=== PATIENT | male | born 1970 | race African-American/Black ===

== ENCOUNTER 2024-11-16 16:19 | Inpatient (IN) | payer MEDICARE ==
[~2024-11-16] VITALS: Ht 177.8 cm; Wt 147.0 kg
[2024-11-16] MEDS: BLOOD SUGAR DIAGNOSTIC STRIP TEST SCH (06:45)
[2024-11-16 18:02] LABS: BASOPHILS % 0.5 % (0.0-2.0); EOSINOPHILS % 0.2 % (0.0-5.0); HEMATOCRIT. 36.9 % (42.0-52.0); HEMOGLOBIN. 11.8 g/dL (14.0-18.0); LYMPHOCYTES % 10.1 % (20.0-50.0); MEAN CORPUSCULAR HEMOGLOBIN 26.8 pg (28.0-32.0); MEAN CORPUSCULAR HGB CONC 32.1 g/dL (31.0-37.0); MEAN CORPUSCULAR VOLUME 83.4 fL (80.0-94.0); MEAN PLATELET VOLUME 8.1 fl (7.4-10.4); MONOCYTES % 12.6 % (2.0-8.0); NEUTROPHILS % 76.6 % (40.0-76.0); PLATELET 497 x1000/uL (130-400); RED BLOOD CELL COUNT 4.42 mill/uL (4.7-6.1); RED CELL DISTRIBUTION WIDTH 15.7 % (11.6-14.6); WHITE BLOOD COUNT 12.2 x1000/uL (4.5-11.0)
[2024-11-16 18:07] LABS: POTASSIUM 4.7 mEq/L (3.5-5.1)
[2024-11-16 18:09] LABS: CALCIUM 9.5 mg/dL (8.7-10.4)
[2024-11-16 18:10] LABS: INR 1.2; PROTHROMBIN TIME 12.7 sec (9.6-11.0)
[2024-11-16 18:13] LABS: CREATININE 3.2 mg/dL (0.6-1.3)
[2024-11-16] MEDS ORDERED: ACETAMINOPHEN 325MG TABLET PO PRN ×2 (20:00)
[2024-11-16] MEDS ORDERED: MAGNESIUM/ALUMINUM HYDROXIDE/SIMETHICONE 30ML UDC PO PRN (20:00)
[2024-11-16] MEDS ORDERED: IPRATROPIUM/ALBUTEROL 0.5-3(2.5)MG/3ML NEB HHN PRN (20:00)
[2024-11-16] MEDS ORDERED: DOCUSATE SODIUM 100MG CAPSULE PO PRN (20:00)
[2024-11-16] MEDS ORDERED: ONDANSETRON HCL 4MG/2ML INJ IV PRN (20:00)
[2024-11-16] MEDS ORDERED: NA PHOS,M-B/NA PHOS,DI-BA ENEMA 118ML PR PRN (20:00)
[2024-11-16] MEDS ORDERED: DEXTROSE 50% WATER 50ML SYRINGE IV PRN (20:00)
[2024-11-16] MEDS ORDERED: HYDROCODONE/ACETAMINOPHEN 5/325MG TABLET PO PRN (20:00)
[2024-11-16] MEDS ORDERED: CLONIDINE 0.1MG TABLET PO PRN (20:00)
[2024-11-16] MEDS ORDERED: GUAIFENESIN 200MG/10ML SUGAR FREE UDC PO PRN (20:00)
[2024-11-16 20:58] LABS: IRON 35 ug/dL (65-175)
[2024-11-16 20:59] LABS: LDL CHOLESTEROL 52 mg/dL (5-100); TRIGLYCERIDE 111 mg/dL (0-150)
[2024-11-16 21:00] LABS: CHOLESTEROL 97 mg/dL (<200); HDL CHOLESTEROL 21 mg/dL (>55)
[2024-11-16 21:01] LABS: PHOSPHORUS 4.1 mg/dL (2.5-4.9)
[2024-11-16 21:04] LABS: T4 FREE 1.42 ng/dL (0.89-1.76)
[2024-11-16 21:10] LABS: FOLIC ACID (FOLATE) SERUM > 20.00 ng/mL (>5.38); VITAMIN B12 SERUM 585 pg/mL (211-911)
[2024-11-16 21:24] LABS: TOTAL IRON BINDING CAPACITY > 670 ug/dl (250-425)
[2024-11-16 21:28] LABS: FERRITIN 2088 ng/mL (22-322)
[2024-11-17 00:51] LABS: CREATINE KINASE 286 IU/L (46-171)
[2024-11-17 00:52] LABS: TROPONIN I HIGH SENSITIVITY 27 ng/L (3.0-53)
[2024-11-17 06:53] LABS: CHLORIDE 97 mEq/L (98-107); POTASSIUM 3.5 mEq/L (3.5-5.1); SODIUM 138 mEq/L (136-145)
[2024-11-17 06:55] LABS: CALCIUM 9.7 mg/dL (8.7-10.4); CARBON DIOXIDE 26 mEq/L (21-32)
[2024-11-17 06:57] LABS: BASOPHILS % 0.3 % (0.0-2.0); EOSINOPHILS % 0.8 % (0.0-5.0); HEMOGLOBIN. 10.7 g/dL (14.0-18.0); LYMPHOCYTES % 13.4 % (20.0-50.0); MEAN CORPUSCULAR HEMOGLOBIN 26.5 pg (28.0-32.0); MEAN CORPUSCULAR HGB CONC 32.5 g/dL (31.0-37.0); MEAN CORPUSCULAR VOLUME 81.7 fL (80.0-94.0); MEAN PLATELET VOLUME 7.7 fl (7.4-10.4); MONOCYTES % 14.5 % (2.0-8.0); PLATELET 452 x1000/uL (130-400); RED BLOOD CELL COUNT 4.05 mill/uL (4.7-6.1); RED CELL DISTRIBUTION WIDTH 15.1 % (11.6-14.6); WHITE BLOOD COUNT 10.6 x1000/uL (4.5-11.0)
[2024-11-17 06:58] LABS: TROPONIN I HIGH SENSITIVITY 24 ng/L (3.0-53)
[2024-11-17 07:00] LABS: CREATININE 2.9 mg/dL (0.6-1.3); GLUCOSE 87 mg/dL (70-105)
[2024-11-17 07:01] LABS: ALANINE AMINOTRANSFERASE 104 IU/L (10-49); UREA NITROGEN BLOOD 63 mg/dL (9-23)
[2024-11-17 07:02] LABS: ALBUMIN 3.9 g/dL (3.2-4.8); ASPARTATE AMINOTRANSFERASE 74 IU/L (<34)
[2024-11-17 07:03] LABS: BILIRUBIN DIRECT 0.2 mg/dL (<=3.0); BILIRUBIN TOTAL 0.4 mg/dL (0.1-1.0); PROTEIN TOTAL 8.2 g/dL (6.0-8.3)
[2024-11-17 07:06] LABS: CREATINE KINASE 272 IU/L (46-171)
[2024-11-17 08:00] VITALS: BP 116/73; PULSE 81; RESP 19; TEMP 36.2; O2SAT 95
[2024-11-17] MEDS: ASPIRIN 81MG EC TABLET PO SCH (09:25)
[2024-11-17] MEDS: FAMOTIDINE 20MG/2ML VIAL IV SCH (09:26)
[2024-11-17] MEDS: ENOXAPARIN 30MG/0.3ML SYR SUBCUT SCH (09:27)
[2024-11-17] MEDS: SODIUM CHLORIDE 0.9% 1,000 ML IV SCH (09:41)
[2024-11-17 12:00] VITALS: BP 121/72; PULSE 82; RESP 20; TEMP 36.7; O2SAT 97
[2024-11-17] MEDS: CEFTRIAXONE 1GM/50ML 50 ML IV SCH (15:48)
[2024-11-17 16:00] VITALS: BP 116/75; PULSE 81; RESP 19; TEMP 36.7; O2SAT 95
[2024-11-17 19:58] LABS: CLARITY URINE CLEAR (CLEAR); COLOR URINE YELLOW (YELLOW); GLUCOSE URINE NEGATIVE (NEGATIVE); KETONES URINE NEGATIVE (NEGATIVE); LEUKOCYTE ESTERASE URINE NEGATIVE (NEGATIVE); NITRITE URINE NEGATIVE (NEGATIVE); OCCULT BLOOD URINE NEGATIVE (NEGATIVE); PH URINE 5.5 (4.5-8.0); PROTEIN URINE 2+ (NEGATIVE); SPECIFIC GRAVITY URINE 1.012 (1.005-1.030)
[2024-11-17 20:00] VITALS: BP 105/58; PULSE 91; RESP 16; TEMP 37.3; O2SAT 94
[2024-11-17 20:02] LABS: *AMPHETAMINES SCREEN URINE NEGATIVE (NEGATIVE); *BARBITURATES SCREEN URINE NEGATIVE (NEGATIVE); *BENZODIAZEPINES SCREEN URINE NEGATIVE (NEGATIVE); *COCAINE SCREEN URINE NEGATIVE (NEGATIVE); CANNABINOID URINE SCREEN NEGATIVE (NEGATIVE); METHADONE URINE SCREEN NEGATIVE (NEGATIVE); OPIATES URINE SCREEN NEGATIVE (NEGATIVE); PHENCYCLIDINE URINE SCREEN NEGATIVE (NEGATIVE)
[2024-11-17 20:03] LABS: ECSTASY MDMA SCREEN URINE NEGATIVE (NEGATIVE)
[2024-11-17 20:07] LABS: CREATINE KINASE 272 IU/L (46-171)
[2024-11-17 20:11] LABS: CREATININE URINE RANDOM 68.8 mg/dL
[2024-11-17 20:30] LABS: BACTERIA URINE NONE SEEN; RBC URINE NONE SEEN /hpf (0-2); SQUAMOUS EPITHELIAL CELL URINE RARE /lpf (RARE/1+); WBC URINE 0-2 /hpf (0-2)
[2024-11-17] MEDS: CARVEDILOL 6.25 MG TABLET PO SCH (21:00)
[2024-11-18] VITALS: BP 110/65; PULSE 87; RESP 18; TEMP 36.3; O2SAT 94
[2024-11-18 04:00] VITALS: BP 108/51; PULSE 85; RESP 18; TEMP 36.1; O2SAT 92
[2024-11-18 08:00] VITALS: BP 148/85; PULSE 87; RESP 18; TEMP 36.8; O2SAT 98
[2024-11-18 08:07] LABS: POTASSIUM 3.5 mEq/L (3.5-5.1)
[2024-11-18 08:08] LABS: CALCIUM 9.5 mg/dL (8.7-10.4)
[2024-11-18 08:23] LABS: BASOPHILS % 0.3 % (0.0-2.0); EOSINOPHILS % 1.7 % (0.0-5.0); HEMATOCRIT. 33.1 % (42.0-52.0); LYMPHOCYTES % 13.2 % (20.0-50.0); MEAN CORPUSCULAR HEMOGLOBIN 27.7 pg (28.0-32.0); MEAN CORPUSCULAR HGB CONC 33.2 g/dL (31.0-37.0); MEAN CORPUSCULAR VOLUME 83.3 fL (80.0-94.0); MEAN PLATELET VOLUME 7.5 fl (7.4-10.4); MONOCYTES % 14.3 % (2.0-8.0); NEUTROPHILS % 70.5 % (40.0-76.0); PLATELET 495 x1000/uL (130-400); RED BLOOD CELL COUNT 3.97 mill/uL (4.7-6.1); RED CELL DISTRIBUTION WIDTH 14.9 % (11.6-14.6); WHITE BLOOD COUNT 8.8 x1000/uL (4.5-11.0)
[2024-11-18 08:30] LABS: CREATININE 1.9 mg/dL (0.6-1.3)
[2024-11-18 12:00] VITALS: BP 115/67; PULSE 86; RESP 20; TEMP 37.1; O2SAT 95
[2024-11-18] MEDS ORDERED: NON FORMULARY MED PO SCH (15:30)
[2024-11-18] MEDS: SPIRONOLACTONE 25MG TABLET PO SCH (16:00)
[2024-11-18] MEDS ORDERED: NALOXONE HCL 0.4MG/ML VIAL IV PRN (16:00)
[2024-11-18 20:00] VITALS: BP 124/85; PULSE 93; RESP 19; TEMP 37.1; O2SAT 94
[2024-11-18] MEDS ORDERED: CARVEDILOL 12.5MG TABLET PO SCH (21:00)
[2024-11-18] MEDS ORDERED: TRAZODONE HCL 50MG TABLET PO SCH (21:00)
[2024-11-18] MEDS: ATORVASTATIN CALCIUM 40MG TABLET PO SCH (22:17)
[2024-11-19] VITALS: BP 127/72; PULSE 95; RESP 16; TEMP 37.1; O2SAT 96
[2024-11-19 01:10] VITALS: BP 113/73; PULSE 89; RESP 20; TEMP 37.4; O2SAT 96
[2024-11-19 04:00] VITALS: BP_SYST 145; BP_SYST 154; BP_DIAS 85; BP_DIAS 99; PULSE 91; RESP 20; TEMP 36.4; O2SAT 99
[2024-11-19] MEDS: ENOXAPARIN 40MG/0.4ML SYR SUBCUT SCH (06:24)
[2024-11-19 08:00] VITALS: BP 148/98; PULSE 92; RESP 20; TEMP 36.4; O2SAT 98
[2024-11-19] MEDS: METOLAZONE 5MG TABLET PO SCH (09:39)
[2024-11-19] MEDS: LITHIUM CARBONATE 150 MG CAPSULE PO SCH (09:39)
[2024-11-19] MEDS: ASPIRIN 81MG TABLET PO SCH (09:40)
[2024-11-19] MEDS ORDERED: CLONIDINE 0.2MG TABLET PO SCH (14:00)
[2024-11-19 16:00] VITALS: BP 136/92; PULSE 89; RESP 18; TEMP 36.8; O2SAT 97
[2024-11-19] MEDS: OLANZAPINE 5MG TABLET PO SCH (16:35)
[2024-11-19] MEDS: QUETIAPINE FUMARATE 25MG TABLET PO SCH (16:36)
[2024-11-19] MEDS: CLOPIDOGREL 75MG TABLET PO SCH (16:36)
[2024-11-19] MEDS: FUROSEMIDE 40MG TABLET PO SCH (16:37)
[2024-11-19] MEDS: NIFEDIPINE XL 90MG TAB PO SCH (16:41)
[2024-11-19 17:33] VITALS: BP 136/92; PULSE 89; TEMP 98.2; O2SAT 97
[2024-11-19 18:37] LABS: CALCIUM 9.9 mg/dL (8.7-10.4)
[2024-11-19 18:41] LABS: CREATININE 1.5 mg/dL (0.6-1.3)
== END 2024-11-19 19:11 | DRG 551 ==
LOC: ER 16:19 → 5WST 18:27 → 7EST 11-19 00:14
PROVIDERS: ADMIT Internal Medicine; ATTEND Internal Medicine
DX: M48.061 Spinal stenosis, lumbar region without neurogenic claudication (principal); N17.0 Acute kidney failure with tubular necrosis; G82.20 Paraplegia, unspecified; I13.0 Hypertensive heart and chronic kidney disease with heart failure and stage 1 through stage 4 chronic kidney disease, or unspecified chronic kidney disease; I42.9 Cardiomyopathy, unspecified; M62.82 Rhabdomyolysis; Z68.42 Body mass index [BMI] 45.0-49.9, adult; D63.1 Anemia in chronic kidney disease; E87.6 Hypokalemia; E88.2 Lipomatosis, not elsewhere classified; F31.9 Bipolar disorder, unspecified; E66.01 Morbid (severe) obesity due to excess calories; G89.29 Other chronic pain; I50.9 Heart failure, unspecified; E78.5 Hyperlipidemia, unspecified; N18.9 Chronic kidney disease, unspecified; Z74.01 Bed confinement status; Z86.73 Personal history of transient ischemic attack (TIA), and cerebral infarction without residual deficits; Z79.02 Long term (current) use of antithrombotics/antiplatelets; Z79.82 Long term (current) use of aspirin; Z79.899 Other long term (current) drug therapy
CPT/HCPCS: 36415; 71045; 72148; 76770; 80048; 80061; 80076; 80305; 81003; 82550; 82570; 82607; 82728; 82746; 82962; 83036; 83540; 83550; 83605; 83735; 83880; 83935; 84100; 84145; 84153; 84300; 84439; 84443; 84484; 84540; 85025; 85651; 86038; 93005; 93306; 93923; 93970; 97166; 97535; 99285; A4606; J0696; J1650; J3490; J7030

== ENCOUNTER 2024-11-19 19:05 | Inpatient (IN) | payer MEDICARE ==
[~2024-11-19] VITALS: Ht 177.8 cm; Wt 147.0 kg
[2024-11-19 20:00] VITALS: BP 129/80; PULSE 98; RESP 18; TEMP 36.7; O2SAT 97
[2024-11-19] MEDS ORDERED: IPRATROPIUM/ALBUTEROL 0.5-3(2.5)MG/3ML NEB HHN PRN (20:00)
[2024-11-19] MEDS ORDERED: NALOXONE HCL 0.4MG/ML 1ML VIAL IV PRN (20:45)
[2024-11-19] MEDS ORDERED: ONDANSETRON HCL 4MG/2ML INJ IV PRN (20:45)
[2024-11-19] MEDS ORDERED: ACETAMINOPHEN 325MG TABLET PO PRN (20:45)
[2024-11-19] MEDS ORDERED: DEXTROSE 50% WATER 50ML SYRINGE IV PRN (20:45)
[2024-11-19 21:00] VITALS: BP 129/80; PULSE 98; RESP 20; TEMP 36.7
[2024-11-19] MEDS ORDERED: DOCUSATE SODIUM 100MG CAPSULE PO PRN (21:00)
[2024-11-19] MEDS ORDERED: NA PHOS,M-B/NA PHOS,DI-BA ENEMA 118ML PR PRN (21:00)
[2024-11-19] MEDS ORDERED: GUAIFENESIN 200MG/10ML SUGAR FREE UDC PO PRN (21:00)
[2024-11-19] MEDS ORDERED: MAGNESIUM/ALUMINUM HYDROXIDE/SIMETHICONE 30ML UDC PO PRN (21:00)
[2024-11-19] MEDS ORDERED: CLONIDINE 0.1MG TABLET PO PRN (21:00)
[2024-11-19] MEDS ORDERED: NALOXONE HCL 0.4MG/ML VIAL IV PRN (21:15)
[2024-11-19] MEDS: CARVEDILOL 12.5MG TABLET PO SCH (21:28)
[2024-11-19] MEDS: ENOXAPARIN 40MG/0.4ML SYR SUBCUT SCH (21:29)
[2024-11-19] MEDS: TRAZODONE HCL 50MG TABLET PO SCH (21:29)
[2024-11-19] MEDS: ATORVASTATIN CALCIUM 40MG TABLET PO SCH (21:29)
[2024-11-19] MEDS: SODIUM CHLORIDE 0.9% 1,000 ML IV SCH (21:30)
[2024-11-19] MEDS: BLOOD SUGAR DIAGNOSTIC STRIP TEST SCH (21:30)
[2024-11-19] MEDS: CLONIDINE 0.2MG TABLET PO SCH (22:00)
[2024-11-19] MEDS: ACETAMINOPHEN 325MG TABLET PO PRN (23:20)
[2024-11-20 08:00] VITALS: BP 115/69; PULSE 99; RESP 18; TEMP 36.4; O2SAT 98
[2024-11-20] MEDS: FAMOTIDINE 20MG/2ML VIAL IV SCH (09:06)
[2024-11-20] MEDS: LITHIUM CARBONATE 150 MG CAPSULE PO SCH (09:06)
[2024-11-20] MEDS: ASPIRIN 81MG TABLET PO SCH (09:06)
[2024-11-20] MEDS: FUROSEMIDE 40MG TABLET PO SCH (09:07)
[2024-11-20] MEDS: CLOPIDOGREL 75MG TABLET PO SCH (09:07)
[2024-11-20] MEDS: NIFEDIPINE XL 90MG TAB PO SCH (09:07)
[2024-11-20] MEDS: SPIRONOLACTONE 25MG TABLET PO SCH (09:08)
[2024-11-20] MEDS: QUETIAPINE FUMARATE 25MG TABLET PO SCH (09:08)
[2024-11-20] MEDS: METOLAZONE 5MG TABLET PO SCH (09:26)
[2024-11-20 09:38] LABS: BASOPHILS % 0.4 % (0.0-2.0); EOSINOPHILS % 1.4 % (0.0-5.0); HEMATOCRIT. 35.5 % (42.0-52.0); HEMOGLOBIN. 11.8 g/dL (14.0-18.0); LYMPHOCYTES % 12.8 % (20.0-50.0); MEAN CORPUSCULAR HEMOGLOBIN 27.7 pg (28.0-32.0); MEAN CORPUSCULAR HGB CONC 33.3 g/dL (31.0-37.0); MEAN CORPUSCULAR VOLUME 83.3 fL (80.0-94.0); MEAN PLATELET VOLUME 7.6 fl (7.4-10.4); MONOCYTES % 11.3 % (2.0-8.0); NEUTROPHILS % 74.1 % (40.0-76.0); PLATELET 586 x1000/uL (130-400); RED BLOOD CELL COUNT 4.26 mill/uL (4.7-6.1); RED CELL DISTRIBUTION WIDTH 15.5 % (11.6-14.6); WHITE BLOOD COUNT 9.2 x1000/uL (4.5-11.0)
[2024-11-20 09:42] LABS: CHLORIDE 97 mEq/L (98-107); SODIUM 136 mEq/L (136-145)
[2024-11-20 09:43] LABS: CARBON DIOXIDE 30 mEq/L (21-32)
[2024-11-20 09:48] LABS: CREATININE 1.4 mg/dL (0.6-1.3); GLUCOSE 116 mg/dL (70-105); UREA NITROGEN BLOOD 36 mg/dL (9-23)
[2024-11-20 09:50] LABS: ALANINE AMINOTRANSFERASE 176 IU/L (10-49); ALBUMIN 4.1 g/dL (3.2-4.8); BILIRUBIN TOTAL 0.4 mg/dL (0.1-1.0); PREALBUMIN 5.5 mg/dl (10.0-40.0)
[2024-11-20 09:51] LABS: PROTEIN TOTAL 9.4 g/dL (6.0-8.3)
[2024-11-20 10:46] LABS: ASPARTATE AMINOTRANSFERASE 89 IU/L (<34)
[2024-11-20] MEDS: CEFTRIAXONE 1GM/50ML 50 ML IV SCH (12:49)
[2024-11-20 14:00] VITALS: BP 108/66; PULSE 89
[2024-11-20 16:00] VITALS: BP 108/66
[2024-11-20] MEDS: OLANZAPINE 5MG TABLET PO SCH (19:00)
[2024-11-20 20:00] VITALS: BP 118/59; PULSE 98; RESP 18; TEMP 37.3; O2SAT 92
[2024-11-20] MEDS: HYDROCODONE/ACETAMINOPHEN 5/325MG TABLET PO PRN (23:59)
[2024-11-21 07:01] LABS: CHLORIDE 97 mEq/L (98-107); POTASSIUM 3.8 mEq/L (3.5-5.1); SODIUM 136 mEq/L (136-145)
[2024-11-21 07:02] LABS: CALCIUM 9.9 mg/dL (8.7-10.4); CARBON DIOXIDE 30 mEq/L (21-32)
[2024-11-21 07:06] LABS: IRON 39 ug/dL (65-175)
[2024-11-21 07:07] LABS: ALANINE AMINOTRANSFERASE 150 IU/L (10-49); AMMONIA < 17 uMol/L (<32); CREATININE 1.4 mg/dL (0.6-1.3); GLUCOSE 92 mg/dL (70-105); PROTEIN TOTAL 8.7 g/dL (6.0-8.3); UREA NITROGEN BLOOD 33 mg/dL (9-23)
[2024-11-21 07:09] LABS: ALBUMIN 3.9 g/dL (3.2-4.8); ASPARTATE AMINOTRANSFERASE 71 IU/L (<34); BILIRUBIN TOTAL 0.4 mg/dL (0.1-1.0); CREATINE KINASE 63 IU/L (46-171); FERRITIN > 1650 ng/mL (22-322)
[2024-11-21 07:10] LABS: FOLIC ACID (FOLATE) SERUM 13.27 ng/mL (>5.38); THYROID STIMULATING HORMONE 1.03 uIU/mL (0.55-4.78)
[2024-11-21 07:11] LABS: VITAMIN B12 SERUM 560 pg/mL (211-911)
[2024-11-21 07:16] LABS: HEMATOCRIT. 33.3 % (42.0-52.0); HEMOGLOBIN. 11.2 g/dL (14.0-18.0); MEAN CORPUSCULAR HEMOGLOBIN 27.9 pg (28.0-32.0); MEAN CORPUSCULAR HGB CONC 33.5 g/dL (31.0-37.0); MEAN CORPUSCULAR VOLUME 83.1 fL (80.0-94.0); MEAN PLATELET VOLUME 7.5 fl (7.4-10.4); PLATELET 604 x1000/uL (130-400); RED BLOOD CELL COUNT 4.01 mill/uL (4.7-6.1); WHITE BLOOD COUNT 10.7 x1000/uL (4.5-11.0)
[2024-11-21 07:36] LABS: TOTAL IRON BINDING CAPACITY > 670 ug/dl (250-425)
[2024-11-21 07:37] LABS: DIFFERENTIAL COMMENT 1
[2024-11-21 08:00] VITALS: BP 104/76; PULSE 97; RESP 19; TEMP 36.6; O2SAT 94
[2024-11-21 18:18] LABS: PLATELET ESTIMATE INCREASED
[2024-11-21 20:00] VITALS: BP 123/54; PULSE 88; RESP 20; TEMP 37.2; O2SAT 95
[2024-11-21] MEDS: LACTULOSE 20G/30ML UDC PO SCH (21:00)
[2024-11-22 08:00] VITALS: BP 128/76; PULSE 92; RESP 20; TEMP 37.4; O2SAT 97
[2024-11-22] MEDS: POLYETHYLENE GLYCOL 3350 (17GM) 1 DOSE PACK PO SCH (09:35)
[2024-11-22] MEDS: BISACODYL 10MG SUPP PR NR (12:30)
[2024-11-22] MEDS: LACTULOSE 20G/30ML UDC PO SCH (13:40)
[2024-11-22] MEDS: NA PHOS,M-B/NA PHOS,DI-BA ENEMA 118ML PR NR (16:00)
[2024-11-22] MEDS ORDERED: LACTULOSE 20G/30ML UDC PO SCH (16:00)
[2024-11-22] MEDS: LACTULOSE 20G/30ML UDC PO PRN (18:29)
[2024-11-22 19:07] LABS: POTASSIUM 3.8 mEq/L (3.5-5.1)
[2024-11-22 19:08] LABS: CALCIUM 9.7 mg/dL (8.7-10.4)
[2024-11-22 19:13] LABS: CREATININE 1.8 mg/dL (0.6-1.3)
[2024-11-22 20:00] VITALS: BP 104/66; PULSE 81; RESP 19; TEMP 37
[2024-11-22] MEDS: QUETIAPINE FUMARATE 25MG TABLET PO SCH (21:40)
[2024-11-22] MEDS: LITHIUM CARBONATE 150 MG CAPSULE PO SCH (21:41)
[2024-11-22] MEDS: SACUBITRIL/VALSARTAN 49MG/51MG TABLET PO SCH (21:41)
[2024-11-23 06:00] LABS: BASOPHILS % 0.5 % (0.0-2.0); EOSINOPHILS % 1.5 % (0.0-5.0); HEMATOCRIT. 33.4 % (42.0-52.0); HEMOGLOBIN. 11.1 g/dL (14.0-18.0); LYMPHOCYTES % 11.1 % (20.0-50.0); MEAN CORPUSCULAR HEMOGLOBIN 27.9 pg (28.0-32.0); MEAN CORPUSCULAR HGB CONC 33.3 g/dL (31.0-37.0); MEAN CORPUSCULAR VOLUME 83.9 fL (80.0-94.0); MEAN PLATELET VOLUME 7.5 fl (7.4-10.4); MONOCYTES % 12.3 % (2.0-8.0); NEUTROPHILS % 74.6 % (40.0-76.0); PLATELET 618 x1000/uL (130-400); RED BLOOD CELL COUNT 3.98 mill/uL (4.7-6.1); RED CELL DISTRIBUTION WIDTH 15.3 % (11.6-14.6); WHITE BLOOD COUNT 9.3 x1000/uL (4.5-11.0)
[2024-11-23 06:16] LABS: CALCIUM 9.9 mg/dL (8.7-10.4); POTASSIUM 3.8 mEq/L (3.5-5.1)
[2024-11-23 06:22] LABS: CREATININE 1.5 mg/dL (0.6-1.3)
[2024-11-23 08:00] VITALS: BP 104/64; PULSE 100; RESP 18; TEMP 36.4; O2SAT 95
[2024-11-23] MEDS: DOCUSATE SODIUM 100MG CAPSULE PO SCH (08:34)
[2024-11-23] MEDS: LACTULOSE 20G/30ML UDC PO SCH (17:09)
[2024-11-23 20:00] VITALS: BP 112/85; PULSE 100; RESP 18; TEMP 36.6; O2SAT 98
[2024-11-24 08:00] VITALS: BP 134/75; PULSE 102; RESP 20; TEMP 36.1; O2SAT 97
[2024-11-24] MEDS: BISACODYL 10MG SUPP PR SCH (09:00)
[2024-11-24] MEDS: PREGABALIN 25MG CAPSULE PO SCH (13:20)
[2024-11-24 20:00] VITALS: BP 132/78; PULSE 98; TEMP 36.2
[2024-11-24] MEDS: CARVEDILOL 12.5MG TABLET PO SCH (21:43)
[2024-11-25 08:00] VITALS: BP 131/84; PULSE 100; RESP 20; TEMP 36.6; O2SAT 97
[2024-11-25 20:18] VITALS: BP 157/97; PULSE 91; RESP 17; TEMP 36.2; O2SAT 95
[2024-11-26 05:36] LABS: POTASSIUM 4.2 mEq/L (3.5-5.1)
[2024-11-26 05:37] LABS: CALCIUM 9.7 mg/dL (8.7-10.4)
[2024-11-26 05:42] LABS: CREATININE 1.6 mg/dL (0.6-1.3)
[2024-11-26 08:00] VITALS: BP 127/79; PULSE 85; RESP 20; TEMP 36.1; O2SAT 96
[2024-11-26 20:00] VITALS: BP 124/76; PULSE 94; RESP 19; TEMP 36.8; O2SAT 98
[2024-11-27 06:14] LABS: POTASSIUM 4.7 mEq/L (3.5-5.1)
[2024-11-27 06:16] LABS: CALCIUM 9.8 mg/dL (8.7-10.4)
[2024-11-27 06:20] LABS: CREATININE 1.7 mg/dL (0.6-1.3)
[2024-11-27 08:00] VITALS: BP 102/49; PULSE 86; RESP 20; TEMP 36.3; O2SAT 97
[2024-11-27 20:00] VITALS: BP 147/83; PULSE 92; RESP 18; TEMP 36.7; O2SAT 95
[2024-11-28 08:00] VITALS: BP 112/61; PULSE 90; RESP 19; TEMP 36.7; O2SAT 95
[2024-11-28 08:01] LABS: BASOPHILS % 0.5 % (0.0-2.0); EOSINOPHILS % 2.3 % (0.0-5.0); HEMATOCRIT. 33.4 % (42.0-52.0); HEMOGLOBIN. 10.5 g/dL (14.0-18.0); LYMPHOCYTES % 18.1 % (20.0-50.0); MEAN CORPUSCULAR HEMOGLOBIN 26.3 pg (28.0-32.0); MEAN CORPUSCULAR HGB CONC 31.6 g/dL (31.0-37.0); MEAN CORPUSCULAR VOLUME 83.5 fL (80.0-94.0); MEAN PLATELET VOLUME 7.1 fl (7.4-10.4); NEUTROPHILS % 68.1 % (40.0-76.0); PLATELET 540 x1000/uL (130-400); RED BLOOD CELL COUNT 3.99 mill/uL (4.7-6.1); RED CELL DISTRIBUTION WIDTH 15.5 % (11.6-14.6); WHITE BLOOD COUNT 7.5 x1000/uL (4.5-11.0)
[2024-11-28 08:43] LABS: CHLORIDE 97 mEq/L (98-107); POTASSIUM 4.6 mEq/L (3.5-5.1); SODIUM 136 mEq/L (136-145)
[2024-11-28 08:44] LABS: CALCIUM 9.8 mg/dL (8.7-10.4); CARBON DIOXIDE 30 mEq/L (21-32)
[2024-11-28 08:49] LABS: CREATININE 1.5 mg/dL (0.6-1.3); GLUCOSE 96 mg/dL (70-105); UREA NITROGEN BLOOD 43 mg/dL (9-23)
[2024-11-28 08:51] LABS: ALANINE AMINOTRANSFERASE 91 IU/L (10-49); ALBUMIN 3.7 g/dL (3.2-4.8); ASPARTATE AMINOTRANSFERASE 32 IU/L (<34); BILIRUBIN TOTAL 0.2 mg/dL (0.1-1.0); PROTEIN TOTAL 8.6 g/dL (6.0-8.3)
[2024-11-28] MEDS: FUROSEMIDE 40MG TABLET PO SCH (10:35)
[2024-11-28] MEDS ORDERED: NALOXONE HCL 0.4MG/ML VIAL IV PRN (15:15)
[2024-11-28 20:00] VITALS: BP 130/92; PULSE 102; RESP 20; TEMP 36.7; O2SAT 97
[2024-11-29 07:37] LABS: CARBON DIOXIDE 31 mEq/L (21-32); CHLORIDE 99 mEq/L (98-107); POTASSIUM 4.5 mEq/L (3.5-5.1); SODIUM 137 mEq/L (136-145)
[2024-11-29 07:38] LABS: CALCIUM 10.2 mg/dL (8.7-10.4)
[2024-11-29 07:43] LABS: CREATININE 1.4 mg/dL (0.6-1.3); GLUCOSE 90 mg/dL (70-105); UREA NITROGEN BLOOD 36 mg/dL (9-23)
[2024-11-29 08:00] VITALS: BP 121/69; PULSE 101; RESP 18; TEMP 36.3; O2SAT 96
[2024-11-29] MEDS: NIFEDIPINE XL 60MG TAB PO SCH (09:11)
[2024-11-29 20:00] VITALS: BP 98/62; PULSE 100; RESP 19; TEMP 36.6; O2SAT 95
[2024-11-29] MEDS: FAMOTIDINE 20MG TABLET PO SCH (21:21)
[2024-11-30 08:00] VITALS: BP 123/93; PULSE 92; RESP 18; TEMP 36.3; O2SAT 97
[2024-11-30 20:00] VITALS: BP 123/74; PULSE 100; RESP 20; TEMP 36.5; O2SAT 98
[2024-12-01 05:34] LABS: POTASSIUM 4.2 mEq/L (3.5-5.1)
[2024-12-01 05:36] LABS: CALCIUM 9.5 mg/dL (8.7-10.4)
[2024-12-01 05:40] LABS: CREATININE 1.5 mg/dL (0.6-1.3)
[2024-12-01 08:00] VITALS: BP 141/90; PULSE 105; RESP 20; TEMP 36.2; O2SAT 95
[2024-12-01 20:00] VITALS: BP 145/92; PULSE 91; RESP 18; TEMP 36.3; O2SAT 98
[2024-12-02 08:00] VITALS: BP 125/81; PULSE 87; RESP 18; TEMP 36.1; O2SAT 99
[2024-12-02] MEDS: NIFEDIPINE XL 90MG TAB PO SCH (09:06)
[2024-12-02] MEDS ORDERED: FURO40TA5 PO (09:11)
[2024-12-02] MEDS ORDERED: LIP40 PO (09:11)
[2024-12-02] MEDS ORDERED: COR12 PO (09:11)
[2024-12-02] MEDS ORDERED: SPIR25TA PO (09:11)
[2024-12-02] MEDS ORDERED: CLOP-31 PO (09:11)
[2024-12-02] MEDS ORDERED: NIFE90TA60 PO (09:11)
[2024-12-02] MEDS ORDERED: FAMO20TA8 PO (09:11)
[2024-12-02] MEDS ORDERED: METO5TAB7 PO (09:11)
[2024-12-02] MEDS ORDERED: SACU1TAB7 PO (09:11)
[2024-12-02] MEDS ORDERED: ASPI-1160 PO (09:11)
[2024-12-02 09:52] VITALS: RESP 18
[2024-12-02 11:02] VITALS: BP 125/81; PULSE 99; TEMP 97; O2SAT 9
== END 2024-12-02 12:40 | disposition home health service (06) | DRG 552 ==
PROVIDERS: ADMIT Physical Medicine & Rehabilitation Spinal Cord Injury Medicine; ATTEND Internal Medicine
PROC: GZ56ZZZ Individual Psychotherapy, Supportive (ICD-10-PCS; principal; 2024-11-29)
DX: M48.061 Spinal stenosis, lumbar region without neurogenic claudication (principal); G82.20 Paraplegia, unspecified; M62.82 Rhabdomyolysis; N17.9 Acute kidney failure, unspecified; Z68.42 Body mass index [BMI] 45.0-49.9, adult; I13.0 Hypertensive heart and chronic kidney disease with heart failure and stage 1 through stage 4 chronic kidney disease, or unspecified chronic kidney disease; I42.9 Cardiomyopathy, unspecified; I50.22 Chronic systolic (congestive) heart failure; D64.9 Anemia, unspecified; D72.829 Elevated white blood cell count, unspecified; E66.01 Morbid (severe) obesity due to excess calories; E78.5 Hyperlipidemia, unspecified; E87.6 Hypokalemia; G89.29 Other chronic pain; M47.26 Other spondylosis with radiculopathy, lumbar region; M51.16 Intervertebral disc disorders with radiculopathy, lumbar region; R26.9 Unspecified abnormalities of gait and mobility; D63.1 Anemia in chronic kidney disease; E88.2 Lipomatosis, not elsewhere classified; F31.9 Bipolar disorder, unspecified; G47.33 Obstructive sleep apnea (adult) (pediatric); K59.00 Constipation, unspecified; M48.07 Spinal stenosis, lumbosacral region; N18.9 Chronic kidney disease, unspecified; R74.8 Abnormal levels of other serum enzymes; M25.572 Pain in left ankle and joints of left foot; R26.2 Difficulty in walking, not elsewhere classified; R53.1 Weakness; R53.81 Other malaise; I73.9 Peripheral vascular disease, unspecified; Z79.02 Long term (current) use of antithrombotics/antiplatelets; Z86.73 Personal history of transient ischemic attack (TIA), and cerebral infarction without residual deficits; Z91.81 History of falling; Z79.82 Long term (current) use of aspirin; Z79.899 Other long term (current) drug therapy
CPT/HCPCS: 36415; 73610; 74018; 80048; 80053; 82140; 82306; 82550; 82607; 82728; 82746; 82962; 83036; 83540; 83550; 84134; 84443; 85025; 92523; 97110; 97112; 97116; 97150; 97162; 97166; 97530; 97535; 97542; C1893; J0696; J1650; J3490; J7030